=== PATIENT | male | born 1970 | race Caucasian/White ===

== ENCOUNTER 2022-07-17 03:19 | Inpatient (IN) ==
[2022-07-17] MEDS ORDERED: EPINEPHrine 1 MG/ML VIAL IM ONE (03:27)
[2022-07-17] MEDS ORDERED: Aspirin 81 MG TAB.CHEW PO ONE (03:33)
[2022-07-17] MEDS ORDERED: *HR* Ticagrelor 90 MG TABLET PO ONE (03:33)
[2022-07-17] MEDS ORDERED: *HR* Heparin 5,000 UNIT/ML VIAL IVP PRN ×2 (03:37)
[2022-07-17] MEDS ORDERED: *HR* Heparin 5,000 UNIT/ML VIAL IVP ONE (03:37)
[2022-07-17 03:47] LABS: Basophils # 0.1 K/mcL (0.0-0.2); Basophils % 0.4 %; Eosinophils # 0.1 K/mcL (0.0-0.6); Eosinophils % 0.6 %; Hemoglobin 18.8 g/dL (12.9-16.9); Lymphocytes # 2.7 K/mcL (0.6-4.6); Lymphocytes % 11.1 %; Mean Corpuscular HGB Conc 32.5 g/dL (31.6-35.5); Mean Corpuscular Hemoglobin 28.4 pg (28.0-33.3); Mean Corpuscular Volume 87.6 fL (83.0-100.0); Mean Platelet Volume 9.3 fL (9.4-12.4); Monocytes # 2.5 K/mcL (0.0-1.3); Monocytes % 10.1 %; Neutrophils # 18.8 K/mcL (1.6-8.9); Platelet Count 388 K/mcL (140-400); Red Blood Count 6.61 M/mcL (4.19-5.50); Red Cell Distribution Width 18.3 % (11.5-14.5); Segmented Neutrophils % 76.8 %; White Blood Count 24.4 K/mcL (4.3-11.1)
[2022-07-17] MEDS: Heparin 25,000UNIT/250ML 1/2NS 25,000 UNIT/250 ML IV.SOLN IVC SCH (03:49)
[2022-07-17] MEDS ORDERED: *HR* Heparin 10,000 UNIT/10 ML VIAL ONE (03:57)
[2022-07-17] MEDS ORDERED: Heparin 1,000 UNITS/500 mL 500 ML ONE ×2 (03:57→05:18)
[2022-07-17] MEDS ORDERED: Iopamidol - 370 200 ML INFUS..BTL ONE ×2 (03:57→04:48)
[2022-07-17] MEDS ORDERED: 0.9 % Sodium Chloride 1,000 ML ONE ×2 (03:57→04:06)
[2022-07-17] MEDS ORDERED: Nitroglycerin 1,000 MCG/5 ML VIAL IV ONE (03:57)
[2022-07-17 04:09] LABS: Calcium 9.1 mg/dL (8.6-10.3); Magnesium 2.2 mg/dL (1.6-2.6); Potassium 4.6 mEq/L (3.5-5.1)
[2022-07-17 04:11] LABS: Hematocrit 57.9 % (37.5-50.1)
[2022-07-17 04:14] LABS: Troponin I 0.07 ng/mL (< 0.04)
[2022-07-17] MEDS ORDERED: Tirofiban 5 MG/100 mL 5 MG/100 ML VIAL IV ONE (04:29)
[2022-07-17] MEDS ORDERED: *HR* Norepinephrine 4 MG/4 ML VIAL IVC ONE (05:02)
[2022-07-17] MEDS ORDERED: Tirofiban 12.5 MG/250ML 12.5 MG/250 ML BAG ONE (05:03)
[2022-07-17] MEDS ORDERED: D5% in Water 250 ML ONE (05:03)
[2022-07-17] MEDS ORDERED: Acetaminophen 325 MG TABLET PO PRN (06:08)
[2022-07-17] MEDS ORDERED: Naloxone 0.4 MG/ML INJ IVP PRN ×2 (06:08→06:10)
[2022-07-17] MEDS ORDERED: Iopamidol - 370 500 ML MLS IVP ONE (06:36)
[2022-07-17] MEDS ORDERED: methylPREDNISolone 125 MG/2 ML VIAL IVP ONE (07:47)
[2022-07-17] MEDS ORDERED: 0.9 % Sodium Chloride 1,000 ML IVC SCH (08:00)
[2022-07-17] MEDS: Ipratropium/Albuterol Neb 3 ML IH SCH ×5 (08:06→23:13)
[2022-07-17] MEDS ORDERED: 0.9 % Sodium Chloride 500 ML IVC ONE (08:18)
[2022-07-17] MEDS: Doxycycline 100 MG CAPSULE PO SCH ×3 (08:47→20:24)
[2022-07-17] MEDS: Aspirin 81 MG TAB.CHEW PO SCH (08:47)
[2022-07-17] MEDS: *HR* Ticagrelor 90 MG TABLET PO SCH ×2 (08:47→20:24)
[2022-07-17] MEDS: MetroNIDAZOLE 500 MG/100 ML 500 MG/100 ML BAG IVPB SCH ×3 (08:48→23:10)
[2022-07-17] MEDS: Famotidine 20 MG/2 ML VIAL IVP SCH ×2 (08:55→17:46)
[2022-07-17] MEDS: Cefepime HCl 2,000 MG in 0.9 % Sodium Chloride 10 ML IVP SCH ×2 (08:56→17:46)
[2022-07-17] MEDS: 0.9 % Sodium Chloride 1,000 ML IVC SCH ×2 (09:27→18:18)
[2022-07-17 10:02] LABS: Basophils % 0.2 %; Eosinophils % 0.2 %; Hemoglobin 18.1 g/dL (12.9-16.9); Immature Granulocytes % 0.6 % (0-4); Lymphocytes # 0.9 K/mcL (0.6-4.6); Lymphocytes % 4.9 %; Mean Corpuscular HGB Conc 32.4 g/dL (31.6-35.5); Mean Corpuscular Hemoglobin 27.8 pg (28.0-33.3); Mean Corpuscular Volume 85.7 fL (83.0-100.0); Mean Platelet Volume 9.4 fL (9.4-12.4); Monocytes # 2.3 K/mcL (0.0-1.3); Monocytes % 12.4 %; Neutrophils # 15.1 K/mcL (1.6-8.9); Platelet Count 348 K/mcL (140-400); Red Blood Count 6.51 M/mcL (4.19-5.50); Red Cell Distribution Width 18.4 % (11.5-14.5); Segmented Neutrophils % 81.7 %; White Blood Count 18.5 K/mcL (4.3-11.1)
[2022-07-17 10:03] LABS: Hematocrit 55.8 % (37.5-50.1)
[2022-07-17 10:04] LABS: VBG Ionized Calcium 1.03 mmol/L (1.15-1.35)
[2022-07-17 10:21] LABS: Albumin 3.8 g/dL (3.5-5.7); Albumin/Globulin Ratio 1.4 (1.1-2.2); Bilirubin,Direct 0.2 mg/dL (0.0-0.2); Bilirubin,Indirect 0.7 mg/dL (0.0-1.0); Bilirubin,Total 0.9 mg/dL (0.3-1.0); Globulin 2.8 g/dL (2.4-3.5); Phosphorous 2.3 mg/dL (2.7-4.5); Total Protein 6.6 g/dL (6.4-8.9)
[2022-07-17 10:27] LABS: Albumin 3.8 g/dL (3.5-5.7); Albumin/Globulin Ratio 1.4 (1.1-2.2); Bilirubin,Total 0.9 mg/dL (0.3-1.0); Calcium 7.9 mg/dL (8.6-10.3); Globulin 2.8 g/dL (2.4-3.5); Heparin anti-factor XA UFH 0.08 IU/mL (0.30-0.70); INR 1.1; Phosphorous 2.3 mg/dL (2.7-4.5); Potassium 5.8 mEq/L (3.5-5.1); Prothrombin Time 12.1 Seconds (9.4-12.1); Total Protein 6.6 g/dL (6.4-8.9); Troponin I 29.87 ng/mL (< 0.04)
[2022-07-17 10:30] LABS: Activated Partial Thrombo Time 26.2 Seconds (26.0-36.0)
[2022-07-17] MEDS: Calcium Gluconate 1gm/50mL 1 GM/50 ML BAG IVPB SCH ×3 (11:17→13:17)
[2022-07-17] MEDS: SODIUM ZIRCONIUM CYCLOSILICATE 5 GM POWD.PACK PO SCH ×3 (11:19→20:24)
[2022-07-17] MEDS: MethylPREDNISolone 40 MG/ML VIAL IVP SCH ×2 (11:19→20:24)
[2022-07-17 19:04] LABS: VBG Ionized Calcium 1.03 mmol/L (1.15-1.35)
[2022-07-17] MEDS: Norepinephrine 4 MG/254 ML IV.SOLN IVC SCH (19:17)
[2022-07-17 19:21] LABS: Calcium 7.6 mg/dL (8.6-10.3); Phosphorous 4.2 mg/dL (2.7-4.5); Potassium 4.4 mEq/L (3.5-5.1)
[2022-07-17 19:49] LABS: Adenovirus Not Detected (Not Detect); Bordetella Pertussis Not Detected (Not Detect); Chlamydophila pneumoniae Not Detected (Not Detect); Coronavirus 229E Not Detected (Not Detect); Coronavirus HKU1 Not Detected (Not Detect); Coronavirus NL63 Not Detected (Not Detect); Coronavirus OC43 Not Detected (Not Detect); Human Metapneumovirus Not Detected (Not Detect); Human Rhinovirus/Enterovirus Not Detected (Not Detect); Influenza A Subtype 2009 H1 Not Detected (Not Detect); Influenza B Not Detected (Not Detect); Mycoplasma pneumoniae Not Detected (Not Detect); Parainfluenza Virus 1 Not Detected (Not Detect); Parainfluenza Virus 2 Not Detected (Not Detect); Parainfluenza Virus 3 Not Detected (Not Detect); Parainfluenza Virus 4 Not Detected (Not Detect); Respiratory Syncytial Virus Not Detected (Not Detect); SARS-CoV-2 Not Detected (Not Detect)
[2022-07-17] MEDS ORDERED: Calcium Gluconate 1gm/50mL 1 GM/50 ML BAG IVPB ONE (20:07)
[2022-07-18 01:30] LABS: Basophils % 0.1 %; Eosinophils % 0.1 %; Hematocrit 43.6 % (37.5-50.1); Hemoglobin 14.2 g/dL (12.9-16.9); Immature Granulocytes % 0.6 % (0-4); Lymphocytes # 1.1 K/mcL (0.6-4.6); Lymphocytes % 6.2 %; Mean Corpuscular HGB Conc 32.6 g/dL (31.6-35.5); Mean Corpuscular Volume 85.8 fL (83.0-100.0); Mean Platelet Volume 9.2 fL (9.4-12.4); Monocytes # 0.8 K/mcL (0.0-1.3); Monocytes % 4.4 %; Neutrophils # 16.1 K/mcL (1.6-8.9); Platelet Count 244 K/mcL (140-400); Red Blood Count 5.08 M/mcL (4.19-5.50); Red Cell Distribution Width 17.2 % (11.5-14.5); Segmented Neutrophils % 88.6 %; White Blood Count 18.1 K/mcL (4.3-11.1)
[2022-07-18 01:43] LABS: Calcium 7.7 mg/dL (8.6-10.3); Chol/HDL Ratio 7.2 (0-4.9); Magnesium 1.9 mg/dL (1.6-2.6); Potassium 4.1 mEq/L (3.5-5.1)
[2022-07-18 02:10] LABS: Estimated Average Glucose 114 mg/dl; Hemoglobin A1C 5.6 %
[2022-07-18] MEDS: Heparin 25,000UNIT/250ML 1/2NS 25,000 UNIT/250 ML IV.SOLN IVC SCH (02:28)
[2022-07-18] MEDS: 0.9 % Sodium Chloride 1,000 ML IVC SCH (02:28)
[2022-07-18] MEDS: MethylPREDNISolone 40 MG/ML VIAL IVP SCH ×3 (03:18→20:04)
[2022-07-18] MEDS: Ipratropium/Albuterol Neb 3 ML IH SCH ×5 (04:03→20:13)
[2022-07-18] MEDS: Cefepime HCl 2,000 MG in 0.9 % Sodium Chloride 10 ML IVP SCH (05:23)
[2022-07-18] MEDS: Famotidine 20 MG/2 ML VIAL IVP SCH (05:23)
[2022-07-18] MEDS ORDERED: Metoprolol XL (24 HR) Succ 50 MG TAB.ER.24H PO SCH (10:30)
[2022-07-18] MEDS: Aspirin 81 MG TAB.CHEW PO SCH (12:15)
[2022-07-18] MEDS: Doxycycline 100 MG CAPSULE PO SCH (12:15)
[2022-07-18] MEDS: *HR* Ticagrelor 90 MG TABLET PO SCH ×2 (12:15→20:04)
[2022-07-18] MEDS ORDERED: *HR* LORazepam 2 MG/ML VIAL IVP PRN ×4 (15:27→18:34)
[2022-07-18] MEDS ORDERED: *HR* LORazepam 1 MG TABLET PO PRN ×6 (15:27→18:34)
[2022-07-18] MEDS ORDERED: *HR* LORazepam 1 MG TABLET PO ONE (15:28)
[2022-07-18] MEDS ORDERED: Naloxone 0.4 MG/ML INJ IVP PRN ×2 (18:34)
[2022-07-18] MEDS ORDERED: Acetaminophen 325 MG TABLET PO PRN (18:34)
[2022-07-18] MEDS ORDERED: *HR* Heparin 5,000 UNIT/ML VIAL IVP PRN ×2 (18:34)
[2022-07-18] MEDS ORDERED: Heparin 25,000UNIT/250ML 1/2NS 25,000 UNIT/250 ML IV.SOLN IVC SCH (18:34)
[2022-07-18] MEDS: Famotidine 20 MG TABLET PO SCH (20:04)
[2022-07-18] MEDS ORDERED: Famotidine 20 MG TABLET PO SCH (21:00)
[2022-07-19] MEDS: Ipratropium/Albuterol Neb 3 ML IH SCH ×7 (00:14→23:35)
[2022-07-19 02:04] LABS: Basophils % 0.1 %; Hematocrit 41.3 % (37.5-50.1); Hemoglobin 13.6 g/dL (12.9-16.9); Immature Granulocytes % 0.8 % (0-4); Lymphocytes # 0.9 K/mcL (0.6-4.6); Lymphocytes % 5.4 %; Mean Corpuscular HGB Conc 32.9 g/dL (31.6-35.5); Mean Corpuscular Volume 85.2 fL (83.0-100.0); Mean Platelet Volume 9.6 fL (9.4-12.4); Monocytes # 0.8 K/mcL (0.0-1.3); Monocytes % 4.5 %; Neutrophils # 15.4 K/mcL (1.6-8.9); Platelet Count 237 K/mcL (140-400); Red Blood Count 4.85 M/mcL (4.19-5.50); Red Cell Distribution Width 17.7 % (11.5-14.5); Segmented Neutrophils % 89.2 %; White Blood Count 17.3 K/mcL (4.3-11.1)
[2022-07-19 02:22] LABS: Calcium 7.9 mg/dL (8.6-10.3); Potassium 3.9 mEq/L (3.5-5.1)
[2022-07-19] MEDS: MethylPREDNISolone 40 MG/ML VIAL IVP SCH (04:21)
[2022-07-19] MEDS: *HR* Ticagrelor 90 MG TABLET PO SCH ×2 (08:51→20:03)
[2022-07-19] MEDS: Folic Acid 1 MG TABLET PO SCH (08:51)
[2022-07-19] MEDS: Famotidine 20 MG TABLET PO SCH ×2 (08:51→20:03)
[2022-07-19] MEDS: Thiamine (B-1) 100 MG TABLET PO SCH (08:52)
[2022-07-19] MEDS: Vitamin B Complex/Vit C/Vit E 1 EACH TABLET PO SCH (08:52)
[2022-07-19] MEDS: Aspirin 81 MG TAB.CHEW PO SCH (08:53)
[2022-07-19] MEDS ORDERED: Metoprolol XL (24 HR) Succ 50 MG TAB.ER.24H PO SCH (09:00)
[2022-07-19] MEDS ORDERED: Vitamin B Complex/Vit C/Vit E 1 EACH TABLET PO SCH (09:00)
[2022-07-19] MEDS ORDERED: Thiamine (B-1) 100 MG TABLET PO SCH (09:00)
[2022-07-19] MEDS ORDERED: Folic Acid 1 MG TABLET PO SCH (09:00)
[2022-07-20 01:18] LABS: Hematocrit 40.2 % (37.5-50.1); Hemoglobin 13.2 g/dL (12.9-16.9); Mean Corpuscular HGB Conc 32.8 g/dL (31.6-35.5); Mean Corpuscular Hemoglobin 28.1 pg (28.0-33.3); Mean Corpuscular Volume 85.7 fL (83.0-100.0); Mean Platelet Volume 9.7 fL (9.4-12.4); Platelet Count 232 K/mcL (140-400); Red Blood Count 4.69 M/mcL (4.19-5.50); White Blood Count 19.6 K/mcL (4.3-11.1)
[2022-07-20 03:38] VITALS: BP 123/72
[2022-07-20] MEDS: Ipratropium/Albuterol Neb 3 ML IH SCH ×3 (04:15→11:05)
[2022-07-20 04:32] LABS: Calcium 7.8 mg/dL (8.6-10.3); Magnesium 2.6 mg/dL (1.6-2.6); Potassium 4.9 mEq/L (3.5-5.1)
[2022-07-20 08:23] VITALS: PULSE 108; TEMP 98
[2022-07-20] MEDS ORDERED: FLUoxetine 20 MG CAPSULE PO SCH (09:00)
[2022-07-20] MEDS ORDERED: Metoprolol XL (24 HR) Succ 50 MG TAB.ER.24H PO SCH (09:00)
[2022-07-20] MEDS: Thiamine (B-1) 100 MG TABLET PO SCH (09:21)
[2022-07-20] MEDS: *HR* Ticagrelor 90 MG TABLET PO SCH (09:21)
[2022-07-20] MEDS: Aspirin 81 MG TAB.CHEW PO SCH (09:22)
[2022-07-20] MEDS: Folic Acid 1 MG TABLET PO SCH (09:22)
[2022-07-20] MEDS: Vitamin B Complex/Vit C/Vit E 1 EACH TABLET PO SCH (09:22)
[2022-07-20 09:46] LABS: EBV Ab(Viral Capsid Ag)VCA-IGG >750.0 U/mL (0.0-21.9)
[2022-07-20] MEDS ORDERED: levoFLOXacin 750 MG TABLET PO SCH (11:15)
[2022-07-20 12:36] VITALS: O2SAT 100
[2022-07-21 10:57] LABS: Coxsackie A9 Virus Antibody <1:8 (<1:8)
== END 2022-07-20 13:30 | disposition home or self-care (01) | DRG 270 ==
LOC: EMEROOARM 03:19 → ICNU 04:15 → 2NNU 07-18 18:09 → 2ANU 07-19 21:28
PROVIDERS: ADMIT Internal Medicine; ATTEND Internal Medicine